=== PATIENT | female | born 1975 | race Caucasian/White ===

== ENCOUNTER → 2016-10-20 | Outpatient (CLI) | payer OTHER ==
[2016-10-20 13:33] LABS: BASOPHIL % 0.2 % (0.0-2.0); EOSINOPHIL # 0.1 TH/MM3 (0-0.4); EOSINOPHIL % 0.6 % (0.0-4.0); HEMATOCRIT 39.2 % (35.0-46.0); HEMO FLAGS DIFF FINAL; LYMPH % 21.3 % (9.0-44.0); LYMPHOCYTE # 3.8 TH/MM3 (1.0-4.8); MEAN CELL VOLUME 87.2 FL (80.0-100.0); MEAN CORPUSCULAR HEMOGLOBIN 30.6 PG (27.0-34.0); MEAN CORPUSCULAR HGB CONC 35.1 % (32.0-36.0); MONO % 4.1 % (0.0-8.0); NEUT % 73.8 % (16.0-70.0); PLATELET COUNT 261 TH/MM3 (150-450); RED CELL DISTRIBUTION WIDTH 12.2 % (11.6-17.2); WHITE BLOOD COUNT 17.6 TH/MM3 (4.0-11.0)
[2016-10-20 13:53] LABS: BACTERIA, URINE RARE /hpf; BLOOD, URINE MOD (NEG); GLUCOSE,URINE NEG (NEG); KETONE, URINE 10 mg/dL (NEG); NITRITE,URINE NEG (NEG); SQUAMOUS EPITHELIAL CELL URINE 4 /hpf (0-5); URINE COLOR YELLOW (YELLW/STRAW)
[2016-10-20 14:05] LABS: BICARBONATE 31.2 MEQ/L (21.0-32.0); POTASSIUM 4.2 MEQ/L (3.5-5.1)
== END ==
LOC: CPRE 12:54
PROVIDERS: ATTEND Obstetrics & Gynecology
DX: Z01.812 Encounter for preprocedural laboratory examination (principal); R10.2 Pelvic and perineal pain; N94.6 Dysmenorrhea, unspecified
CPT/HCPCS: 36415; 80048; 81001; 84703; 85025

== ENCOUNTER 2016-10-25 12:37 | Observation (INO) | payer OTHER ==
[~2016-10-25] VITALS: Ht 167.6 cm; Wt 59.1 kg
[~2016-10-25 12:37] MED LIST: LACTATED RINGER'S 1000 ML INJ 1,000 ML IV ONE; ONDANSETRON HCL 4 MG/2 ML VIAL IV PUSH ONE; PROPOFOL 200 MG/20 ML AMP IV ONE
[2016-10-25 13:06] VITALS: BP 116/69; PULSE 92; RESP 16; TEMP 97.5; O2SAT 97
[2016-10-25] MEDS ORDERED: METOPROLOL TARTRATE 25 MG TAB PO PRN (13:15)
[2016-10-25] MEDS ORDERED: CHLORHEXIDINE GLUCONATE 2 % 1 PACK (2 CLOTHS) TOPICAL PRN (13:15)
[2016-10-25] MEDS ORDERED: INSULIN HUMAN REGULAR 1,000 UNITS/10 ML VIAL SQ PRN (13:15)
[2016-10-25] MEDS ORDERED: POVIDONE IODINE 5% (ANTISEPSIS KIT) 4 APPLICATIONS EACH NARE PRN (13:15)
[2016-10-25] MEDS ORDERED: SODIUM CHLORID 0.9% 500 ML IV PRN (13:15)
[2016-10-25] MEDS ORDERED: LACTATED RINGER'S 1000 ML IV PRN (13:15)
[2016-10-25] MEDS ORDERED: ceFAZolin 1,000 MG/NS 100 ML IV SCH ×2 (13:15)
[2016-10-25 13:54] LABS: BASOPHIL # 0.1 TH/MM3 (0-0.2); BASOPHIL % 0.5 % (0.0-2.0); EOSINOPHIL # 0.1 TH/MM3 (0-0.4); EOSINOPHIL % 0.5 % (0.0-4.0); HEMO FLAGS DIFF FINAL; LYMPH % 30.1 % (9.0-44.0); LYMPHOCYTE # 4.2 TH/MM3 (1.0-4.8); MEAN CELL VOLUME 87.1 FL (80.0-100.0); MEAN CORPUSCULAR HEMOGLOBIN 30.3 PG (27.0-34.0); MEAN CORPUSCULAR HGB CONC 34.8 % (32.0-36.0); MONO % 4.6 % (0.0-8.0); NEUT % 64.3 % (16.0-70.0); PLATELET COUNT 247 TH/MM3 (150-450); RED BLOOD COUNT 4.24 MIL/MM3 (4.00-5.30); RED CELL DISTRIBUTION WIDTH 12.3 % (11.6-17.2)
[2016-10-25] MEDS ORDERED: DEXAMETHASONE SOD PHOS 4 MG/ML VIAL ONE (17:45)
[2016-10-25] MEDS ORDERED: FAMOTIDINE 20 MG/2 ML VIAL ONE (17:45)
[2016-10-25] MEDS ORDERED: APREPITANT 40 MG CAP ONE (17:45)
[2016-10-25] MEDS ORDERED: ACETAMINOPHEN 1000 MG/100 ML VIAL IV ONE (17:46)
[2016-10-25] MEDS ORDERED: MIDAZOLAM HCL 2 MG/2 ML VIAL ONE ×3 (19:03→21:27)
[2016-10-25] MEDS ORDERED: fentaNYL CITRATE 250 MCG/5 ML AMP ONE ×2 (19:10→21:28)
[2016-10-25] MEDS ORDERED: LACTATED RINGER'S 1000 ML INJ 1,000 ML IV SCH (20:50)
[2016-10-25] MEDS ORDERED: diphenhydrAMINE HCL 25 MG CAP PO PRN (21:00)
[2016-10-25] MEDS ORDERED: ONDANSETRON ODT 4 MG TAB PO PRN (21:00)
[2016-10-25] MEDS: DOCUSATE SODIUM 100 MG CAP PO SCH (21:00)
[2016-10-25] MEDS ORDERED: ZOLPIDEM TARTRATE 5 MG TAB PO PRN (21:00)
[2016-10-25] MEDS ORDERED: HYDROmorphone HCL PF 1 MG/ML VIAL IVP PRN (21:00)
[2016-10-25] MEDS ORDERED: SODIUM CHLORIDE 0.9% FLUSH 10 ML FLUSH IV FLUSH PRN (21:00)
[2016-10-25] MEDS ORDERED: ONDANSETRON HCL 4 MG/2 ML VIAL IVP PRN (21:00)
[2016-10-25] MEDS ORDERED: oxyCODONE/ACETAMINOPHEN 5 MG/325 MG TAB PO PRN (21:00)
[2016-10-25] MEDS ORDERED: IBUPROFEN 600 MG TAB PO PRN (21:00)
[2016-10-25] MEDS: SODIUM CHLORIDE 0.9% FLUSH 10 ML FLUSH IV FLUSH SCH (21:00)
[2016-10-25] MEDS ORDERED: MORPHINE SULFATE 4 MG/ML INJ ONE (21:27)
[2016-10-25] MEDS ORDERED: PROCHLORPERAZINE INJ 10 MG/2 ML VIAL ONE (21:42)
[2016-10-25] MEDS ORDERED: *morphine SULFATE 8 MG/ML PERIprocedure ONLY ONE (21:48)
[2016-10-25] MEDS ORDERED: PROCHLORPERAZINE INJ 10 MG/2 ML VIAL IV ONE (22:45)
[2016-10-25 23:00] VITALS: BP 108/59; PULSE 89; RESP 16; TEMP 98; O2SAT 100
[2016-10-26] MEDS: oxyCODONE/ACETAMINOPHEN 5 MG/325 MG TAB PO PRN ×2 (03:41→08:38)
[2016-10-26 04:00] VITALS: BP 103/61; PULSE 90; RESP 16; TEMP 97.9; O2SAT 97
[2016-10-26 07:34] LABS: AUTOMATED NEUTROPHIL # 15.7 TH/MM3 (1.8-7.7); BASOPHIL % 0.1 % (0.0-2.0); HEMATOCRIT 36.5 % (35.0-46.0); HEMO FLAGS DIFF FINAL; LYMPH % 7.9 % (9.0-44.0); LYMPHOCYTE # 1.4 TH/MM3 (1.0-4.8); MEAN CORPUSCULAR HEMOGLOBIN 29.4 PG (27.0-34.0); MEAN CORPUSCULAR HGB CONC 34.2 % (32.0-36.0); MONO % 2.2 % (0.0-8.0); NEUT % 89.8 % (16.0-70.0); PLATELET COUNT 258 TH/MM3 (150-450); RED BLOOD COUNT 4.24 MIL/MM3 (4.00-5.30); WHITE BLOOD COUNT 17.5 TH/MM3 (4.0-11.0)
[2016-10-26 07:50] VITALS: BP 118/68; PULSE 84; RESP 20; TEMP 98; O2SAT 97
--- NOTE | 2016-10-26 07:54 | HHI.PR ---
Subjective Remarks Doing well, pain is well controlled, eating well. Objective Vital Signs Vital Signs Date Time Temp Pulse Resp B/P Pulse Ox O2 Delivery O2 Flow Rate FiO2 10/26/16 04:00 97.9 90 16 103/61 97 10/25/16 23:00 98.0 89 16 108/59 100 10/25/16 22:35 79 16 118/69 100 Nasal Cannula 2 10/25/16 22:14 77 14 117/70 100 Nasal Cannula 2 10/25/16 22:00 76 16 122/81 100 Nasal Cannula 2 10/25/16 21:45 90 16 126/72 100 Nasal Cannula 2 10/25/16 21:30 80 17 120/68 100 Nasal Cannula 2 10/25/16 21:22 97.4 91 20 122/67 99 Nasal Cannula 2 10/25/16 13:06 97.5 92 16 116/69 97 I/O 10/25/16 10/25/16 10/25/16 10/26/16 10/26/16 10/26/16 07:00 15:00 23:00 07:00 15:00 23:00 Intake Total 900 ml Output Total 825 ml 1100 ml Balance 75 ml -1100 ml Intake Other 900 ml Output Urine Total 1100 ml Estimated Blood Loss 100 ml Other 725 ml Result Diagram: 10/26/16 0653 Objective Remarks Chest is clear, regular rate and rhythm. Abdomen is soft and non-distended. Incision is clean and dry. Ext no CCE. A/P Assessment and Plan Post Op Day 1 Doing well Home today and return to office in two weeks. Kenny Victor MD October 26, 2016 07:54
--- NOTE | 2016-10-26 08:03 | HHI.DCPOC ---
Discharge Care Plan Diagnosis: (1) History of laparoscopic-assisted vaginal hysterectomy Report Symptoms to Your Doctor -Temperate above 100.5 degrees -Redness, of incision or excessive or foul smelling drainage -Unusual pain or calf pain -Increased vaginal bleeding -Painful or difficulty urinating -Feelings of extreme sadness or anxiety after 2 weeks Goals to Promote Your Health * To prevent worsening of your condition and complications * To maintain your health at the optimal level Directions to Meet Your Goals Take your medications as prescribed Follow your dietary instruction Follow activity as directed Ensure plenty of rest for recovery Drink fluids for hydration Keep your appointments as scheduled Take your immunizations and boosters as scheduled If your symptoms worsen call your PCP, if no PCP go to Urgent Care Center or Emergency Room Smoking is Dangerous to Your Health. Avoid second hand smoke Call the 24-hour crisis hotline for domestic abuse at Joya Magallanes MD R2 October 26, 2016 08:03
[2016-10-26 08:04] LABS: BICARBONATE 25.6 MEQ/L (21.0-32.0)
[2016-10-26] MEDS: DOCUSATE SODIUM 100 MG CAP PO SCH (08:38)
[2016-10-26] MEDS: SODIUM CHLORIDE 0.9% FLUSH 10 ML FLUSH IV FLUSH SCH (09:00)
--- NOTE | 2016-10-26 11:33 | MP ---
cc: GUALBERTOLATISHA DATE OF SURGERY October 25, 2016 PREOPERATIVE DIAGNOSES 1. Abnormal uterine bleeding 2. Cyclical severe pelvic pain. POSTOPERATIVE DIAGNOSES 1. Abnormal uterine bleeding 2. Cyclical severe pelvic pain. PROCEDURE 1. Laparoscopic-assisted vaginal hysterectomy, bilateral salpingectomy. 2. Lysis of adhesions. ANESTHESIA General endotracheal intubation SURGEON Kenny Victor MD FINDINGS The uterus was normal size, shape and consistency, anteverted. The adnexa were negative for masses. Laparoscopic exam revealed a normal posterior cul-de-sac, normally uterus. The fallopian tubes were bisected bilaterally from previous tubal ligation. The ovaries were normal in size and position. The upper abdomen was normal. COMPLICATIONS It was a difficult bladder flap and we had to do lysis of adhesions before proceeding with the surgery. There was quite a bit of scar tissue from her previous section. COUNTS Correct. ESTIMATED BLOOD LOSS 75 cc. FLUIDS Crystalloids. PROCEDURE IN DETAIL The patient was taken to the operating room, identified by name band and verbally. She was given a general anesthetic and carefully placed in the dorsal lithotomy position for vaginal laparoscopic surgery. She was prepped and draped and a Neal catheter was inserted. An examination under anesthesia was carried out with the above findings. Once this had been accomplished, a weighted speculum was placed in the vagina. The anterior lip of the cervix was grasped with a single toothed tenaculum. The Hulka clamp was placed without difficulty. The surgeon changed gloves and paid attention to the umbilical area where a small subumbilical incision was made and using the 5 mm trocar, the abdomen was entered under direct vision without difficulty. A Pneumoperitoneum was created with three liters of CO2. Inferolateral to the umbilicus bilaterally, two more 5 mm ports were placed for instrumentation under direct visualization. The entire pelvis and abdomen were carefully inspected with the above findings. The right infundibulopelvic ligament was identified and taken with the LigaSure device. This was taken down and half way down the broad ligament. This was repeated on the left side as well. The round ligament was then taken and a bladder flap was created in the usual fashion pushing the bladder out of harms way. The remainder of the broad ligament was taken down with the LigaSure device bilaterally and the uterine vessels were skeletonized. Once they had been skeletonized, the uterine vessels were taken with the LigaSure device. Hemostasis was excellent. The Cardinal ligament was then taken down with the LigaSure device staying very close to the cervix and pushing the bladder out of harm's way. At this point, all surgical pedicles were inspected and the surgeon turned his attention to the cervix. The weighted speculum was replaced into the vagina and the Hulka clamp removed. The tenaculum was replaced anteriorly and a circumferential incision was made around the cervix without difficulty. Most of the Cardinal ligament had already been taken down. With several clamps of the Librado, the specimen was freed up and pulled through the vaginal canal. At this time, the pneumoperitoneum was released and the peritoneum was then grasped in a pursestring fashion with 2-0 Vicryl and the peritoneum closed. The vagina was closed with 0 Vicryl pop-offs in interrupted fashion with excellent hemostasis. Going back up to the laparoscope then, we inspected all the pedicles and they were completely dry. We removed the pneumoperitoneum and the three 5 mm ports. The incisions were repaired with a single stitch of 4-0 Monocryl in a subcuticular manner. The patient tolerated the procedure well and went to the Recovery Room in good condition. R. MD LUZ Taylor/BHASKAR /8:58 PM /11:26 AM
[2016-10-26 11:36] VITALS: BP 129/71; PULSE 95; RESP 20; TEMP 98.5; O2SAT 96
== END 2016-10-26 12:43 | disposition home or self-care (01) ==
LOC: HSDC 12:37 → UNDOADMIN 21:15 → HSDI 21:15 → HOCB 22:40
PROVIDERS: ADMIT Obstetrics & Gynecology; ATTEND Obstetrics & Gynecology
DX: N93.9 Abnormal uterine and vaginal bleeding, unspecified (principal); N72 Inflammatory disease of cervix uteri; N70.11 Chronic salpingitis; N94.89 Other specified conditions associated with female genital organs and menstrual cycle; F41.9 Anxiety disorder, unspecified; Z98.51 Tubal ligation status; R10.2 Pelvic and perineal pain
CPT/HCPCS: 00840; 58552; 80048; 85025; 88307; G0378; J0131; J0690; J1100; J2250; J2270; J2405; J3010; J7120; J8501; J0780